=== PATIENT | female | born 1995 | race Caucasian/White ===

== ENCOUNTER 2019-06-01 23:09 | Emergency (ER) | payer OTHER ==
[~2019-06-01] VITALS: Ht 157.5 cm; Wt 71.7 kg
[2019-06-01] MEDS ORDERED: PRENATAL 19 TA1 EACH (23:38)
[2019-06-02] MEDS ORDERED: KEFLEX500 MG PO (05:16)
== END 2019-06-02 05:21 | disposition home or self-care (01) ==
LOC: ER 23:09
DX: O20.0 Threatened abortion (principal)

== ENCOUNTER 2019-07-16 15:13 | Emergency (ER) | payer OTHER ==
[~2019-07-16] VITALS: Ht 157.5 cm; Wt 68.9 kg
[~2019-07-16 15:13] MED LIST: KEFLEX500 MG PO; PRENATAL 19 TA1 EACH
== END 2019-07-16 20:07 | disposition home or self-care (01) ==
LOC: ER 15:13
DX: O26.891 Other specified pregnancy related conditions, first trimester (principal); R10.2 Pelvic and perineal pain; Z34.02 Encounter for supervision of normal first pregnancy, second trimester

== ENCOUNTER 2019-08-07 22:53 | Emergency (ER) | payer OTHER ==
[~2019-08-07] VITALS: Ht 157.5 cm; Wt 70.3 kg
[2019-08-07] MEDS ORDERED: ASPIR 8181 MG (23:11)
== END 2019-08-08 06:11 ==
LOC: ER 22:53
DX: O46.8X2 Other antepartum hemorrhage, second trimester (principal); O26.892 Other specified pregnancy related conditions, second trimester; K52.89 Other specified noninfective gastroenteritis and colitis; O35.8XX0 Maternal care for other (suspected) fetal abnormality and damage, not applicable or unspecified

== ENCOUNTER → 2019-08-29 | Outpatient (CLI) | payer OTHER ==
[~2019-08-29] MED LIST changes: +ASPIR 8181 MG
== END | disposition home or self-care (01) ==
LOC: PRENATAL 08:00
DX: O35.0XX0 Maternal care for (suspected) central nervous system malformation in fetus, not applicable or unspecified (principal); O44.00 Complete placenta previa NOS or without hemorrhage, unspecified trimester; O35.3XX0 Maternal care for (suspected) damage to fetus from viral disease in mother, not applicable or unspecified; Z3A.19 19 weeks gestation of pregnancy

== ENCOUNTER 2020-01-21 02:54 | Inpatient (IN) | payer OTHER ==
[~2020-01-21] VITALS: Ht 127 cm; Wt 3.6 kg
[2020-01-21] MEDS ORDERED: VITAMINA C PO (03:07)
[2020-01-21] MEDS ORDERED: HIERRO PO (03:07)
== END 2020-01-24 17:21 | disposition home or self-care (01) | DRG 788 ==
LOC: OB/GYN 02:54 → LDR 02:54 → OB/GYN 16:36
PROVIDERS: ADMIT Obstetrics & Gynecology; ATTEND Obstetrics & Gynecology
PROC: 10907ZC Drainage of Amniotic Fluid, Therapeutic from Products of Conception, Via Natural or Artificial Opening (ICD-10-PCS; 2020-01-21)
PROC: 3E033VJ Introduction of Other Hormone into Peripheral Vein, Percutaneous Approach (ICD-10-PCS; 2020-01-21)
PROC: 4A1HXCZ Monitoring of Products of Conception, Cardiac Rate, External Approach (ICD-10-PCS; 2020-01-21)
PROC: 10D00Z1 Extraction of Products of Conception, Low, Open Approach (ICD-10-PCS; principal; 2020-01-21 14:00)
DX: O64.8XX0 Obstructed labor due to other malposition and malpresentation, not applicable or unspecified (principal); Z3A.39 39 weeks gestation of pregnancy; Z37.0 Single live birth